=== PATIENT | female | born 1965 | race Caucasian/White ===

== ENCOUNTER → 2021-07-12 14:13 | Outpatient (BNVA) | payer OTHER, SELFPAY | PROVIDERS: Visit Provider Internal Medicine | DX: S39.012D Strain of muscle, fascia and tendon of lower back, subsequent encounter (principal); X50.3XXD Overexertion from repetitive movements, subsequent encounter; M25.521 Pain in right elbow; M79.672 Pain in left foot | CPT/HCPCS: 72110; 73080; 99203 ==

== ENCOUNTER → 2021-08-01 07:39 | Outpatient (BNVA) | payer OTHER, SELFPAY | PROVIDERS: Visit Provider Internal Medicine | DX: S16.1XXD Strain of muscle, fascia and tendon at neck level, subsequent encounter (principal); S39.012D Strain of muscle, fascia and tendon of lower back, subsequent encounter; S56.8 Injury of other muscles, fascia and tendons at forearm level; S66.91 Strain of unspecified muscle, fascia and tendon at wrist and hand level; X58.XXXD Exposure to other specified factors, subsequent encounter | CPT/HCPCS: 99213 ==

== ENCOUNTER → 2021-08-22 07:58 | Outpatient (BNVA) | payer OTHER, SELFPAY | PROVIDERS: Visit Provider Internal Medicine | DX: M77.11 Lateral epicondylitis, right elbow (principal) | CPT/HCPCS: 73080; 99214 ==

== ENCOUNTER → 2021-09-03 14:16 | Outpatient (BNVA) | payer OTHER, SELFPAY | PROVIDERS: PCP Internal Medicine; Visit Provider Physician Assistant | DX: M77.11 Lateral epicondylitis, right elbow (principal) | CPT/HCPCS: 20551; 99202; J1020 ==

== ENCOUNTER → 2021-09-10 11:02 | Outpatient (BNVA) | payer OTHER, SELFPAY | PROVIDERS: PCP Internal Medicine; Visit Provider Internal Medicine | DX: M77.11 Lateral epicondylitis, right elbow (principal) | CPT/HCPCS: 99213 ==